=== PATIENT | female | born 1955 | race Caucasian/White ===

== ENCOUNTER 2017-06-26 11:39 | Observation (INO) ==
[2017-06-26] MEDS ORDERED: ENOXAPARIN 100 MG/ML SYRINGE SUBCUT STA (13:52)
[2017-06-26] MEDS ORDERED: ASPIRIN 325 MG TABLET PO STA (13:52)
[2017-06-26] MEDS ORDERED: NITROGLYCERIN SL 0.4 MG TABLET SL PRN (13:52)
[2017-06-26] MEDS ORDERED: ENOXAPARIN 80 MG/0.8 ML SYRINGE SUBCUT ONE (13:58)
[2017-06-26] MEDS ORDERED: ASPIRIN 325 MG TABLET ONE (13:58)
[2017-06-26] MEDS ORDERED: NITROGLYCERIN SL 0.4 MG TABLET SL ONE (13:58)
[2017-06-26 14:09] LABS: Basophils # 0.1 10*3/uL (0.0-0.2); Basophils % 0.6 % (0.0-0.8); Eosinophils # 0.3 10*3/uL (0.0-0.87); Hematocrit 43.7 VOL% (35.7-47.0); Hemoglobin 14.5 GM/DL (12.0-16.0); Immature Granulocytes % 0.4 %; Immature Granulocytes Absolute 0.03 #; Lymphocytes # 2.6 10*3/uL (1.4-4.0); Lymphocytes % 31.2 % (21.3-54.2); Mean Corpuscular HGB Conc 33.2 GM/DL (32-36); Mean Corpuscular Hemoglobin 31 PG (27-34); Mean Corpuscular Volume 94.4 FL (87-102); Mean Platelet Volume 9.4 FL (9.6-12.0); Monocytes # 0.7 10*3/uL (0.11-0.8); Monocytes % 8.1 % (1.7-12.7); Neutrophils # 4.7 10*3/uL (1.4-7.4); Neutrophils % 56.7 % (38.7-73.9); Platelet Count 349 T/CUMM (130-400); Red Blood Count 4.63 MC/CUMM (3.8-5.5); Red Cell Distribution Width 12.8 % (9.3-17.3); White Blood Count 8.3 T/CUMM (4-12)
[2017-06-26 14:34] LABS: Albumin 4.3 G/DL (3.4-5.0); Bilirubin,Total 0.4 MG/DL (0.2-1.0); Calcium 9.4 MG/DL (8.5-10.1); Magnesium 2.3 MG/DL (1.8-2.4); Osmolality,Calculated 271.7 MOS/KG (273-304); Potassium 4.2 MMOL/L (3.5-5.1); Total Protein 7.8 G/DL (6.4-8.3)
[2017-06-26] MEDS ORDERED: NICOTINE 14 MG/24 HR PATCH TRANSDERM PRN (16:28)
[2017-06-26] MEDS ORDERED: ONDANSETRON 4 MG/2 ML VIAL IV PRN (16:29)
[2017-06-26] MEDS ORDERED: ACETAMINOPHEN 325 MG TABLET PO PRN (16:29)
[2017-06-26] MEDS ORDERED: DOCUSATE SODIUM 100 MG CAPSULE PO PRN (16:29)
[2017-06-27 05:08] LABS: Basophils # 0.1 10*3/uL (0.0-0.2); Basophils % 0.8 % (0.0-0.8); Eosinophils # 0.4 10*3/uL (0.0-0.87); Eosinophils % 4.9 % (0.00-10.9); Hematocrit 40.4 VOL% (35.7-47.0); Hemoglobin 13.6 GM/DL (12.0-16.0); Immature Granulocytes % 0.4 %; Immature Granulocytes Absolute 0.03 #; Lymphocytes % 39.2 % (21.3-54.2); Mean Corpuscular HGB Conc 33.7 GM/DL (32-36); Mean Corpuscular Hemoglobin 32 PG (27-34); Mean Corpuscular Volume 93.5 FL (87-102); Mean Platelet Volume 9.8 FL (9.6-12.0); Monocytes # 0.7 10*3/uL (0.11-0.8); Monocytes % 9.4 % (1.7-12.7); Neutrophils # 3.4 10*3/uL (1.4-7.4); Neutrophils % 45.3 % (38.7-73.9); Platelet Count 304 T/CUMM (130-400); Red Blood Count 4.32 MC/CUMM (3.8-5.5); Red Cell Distribution Width 12.5 % (9.3-17.3); White Blood Count 7.6 T/CUMM (4-12)
[2017-06-27 05:51] LABS: Calcium 8.7 MG/DL (8.5-10.1); Osmolality,Calculated 275.4 MOS/KG (273-304); Potassium 4.2 MMOL/L (3.5-5.1)
[2017-06-27] MEDS ORDERED: PANTOPRAZOLE 40 MG TABLET PO SCH (09:00)
[2017-06-27 12:21] VITALS: BP 125/75
[2017-06-27] MEDS ORDERED: ENOXAPARIN 30 MG/0.3 ML SYRINGE SUBCUT SCH (14:00)
== END 2017-06-27 12:35 | disposition home or self-care (01) ==
LOC: N.ED 11:39 → INTOOBSV 15:52 → N.EDINP 15:52 → SUATTDRO 15:52 → N.EDINP 18:14 → N.TELEN 18:21
PROVIDERS: ADMIT Internal Medicine Cardiovascular Disease; ATTEND Internal Medicine Geriatric Medicine